=== PATIENT | male | born 1950 | race Caucasian/White ===

== ENCOUNTER → 2017-10-09 | Outpatient (REF) | payer MEDICARE, OTHER ==
[2017-10-09 12:32] LABS: RHEUMATOID FACTOR QUANT < 10.0 IU/ML (<15.0)
[2017-10-11 14:19] LABS: ANTINUCLEAR ANTIBODIES DIRECT Negative (Negative)
== END ==
LOC: M LAB REF 11:59
DX: M25.512 Pain in left shoulder (principal)
CPT/HCPCS: 86038

== ENCOUNTER → 2018-03-27 | Outpatient (CLI) | payer MEDICARE, OTHER | LOC: M ADAMS 09:16 | DX: J98.4 Other disorders of lung (principal); M51.34 Other intervertebral disc degeneration, thoracic region; J20.9 Acute bronchitis, unspecified | CPT/HCPCS: 85025 ==

== ENCOUNTER → 2018-03-27 | Outpatient (REF) | payer MEDICARE, OTHER ==
[2018-03-27 12:46] LABS: BASO % 0.2 % (0.0-1.0); EOS # 0.4 10^3/uL (0.0-0.50); EOS % 2.8 % (0.0-3.0); HEMATOCRIT 47.7 % (42.0-52.0); HEMOGLOBIN 15.9 g/dl (13.5-17.5); IMMATURE GRANULOCYTE % 0.2 % (0-3.0); LYMPH # 1.3 10^3/uL (1.5-4.5); MEAN CORPUSCULAR HEMOGLOBIN 31.4 pg (27.0-33.0); MEAN CORPUSCULAR HGB CONC 33.3 g/dl (32.0-36.5); MEAN CORPUSCULAR VOLUME 94.3 fl (80.0-96.0); MONO # 1.3 10^3/uL (0.0-0.8); MONO % 10.4 % (0.0-5.0); NEUTROPHILS # 9.5 10^3/uL (1.8-7.7); NEUTROPHILS % 76.4 % (36.0-66.0); PLATELET COUNT, AUTOMATED 206 10^3/uL (150-450); RED BLOOD COUNT 5.06 10^6/uL (4.30-6.10); RED CELL DISTRIBUTION WIDTH 13.3 % (11.5-14.5); WHITE BLOOD COUNT 12.5 10^3/uL (4.0-10.0)
== END ==
LOC: M LABDRWAD 12:23
DX: J20.9 Acute bronchitis, unspecified (principal)

== ENCOUNTER → 2018-05-13 | Outpatient (CLI) | payer MEDICARE, OTHER ==
--- NOTE | 2018-05-15 10:42 | SLEEPCENT ---
DATE OF STUDY: 05/13/2018 ORDERED BY: Vanita Baker Nocturnal polysomnography was performed for evaluation of sleep physiology in this patient with a history of excessive somnolence and nonrestorative sleep who has comorbidities of hypertension. 6 hours and 56 minutes of data were reviewed. There were 327 minutes of sleep identified. Sleep latency was mildly prolonged at 18 minutes. REM latency was prolonged at 126 minutes. Sleep architecture was fragmented with improvement after interventions were made. Overall sleep efficiency 79%. Electrocardiogram showed a sinus rhythm with an average heart rate of 57 beats per minute. EEG showed normal waveforms for awake and sleep stages. There were 161 respiratory events identified of 10 seconds in duration or greater for an apnea-hypopnea index of 29.5. The events were associated oxygen saturations into the 70s, and having clearly established the presence of obstructive sleep apnea syndrome, testing was stopped shortly after 1 a.m. for the application of pressure therapy. The patient was fit with a [employer]Med Quattro full face mask of medium size, 4 cm of water pressure were applied to the circuit and the lights were extinguished. Throughout the remaining course of testing, pressure therapy was progressively increasing to 13 cm. Best sleep during this study appears to have occurred at a pressure of +9, with which the patient was able to experience REM sleep though not in the supine posture with only mild respiratory variability. There was also some activity noted in the limb leads. Limb movement arousal index was 7.7. IMPRESSION: Obstructive sleep apnea syndrome (G47.33). Apnea-hypopnea index 29.5. RECOMMENDATION: Initiation of pressure therapy at 9 cm of water should be sufficient to address much of the patient's respiratory disruption. Given the severity of the patient's condition, however, close clinical followup is recommended and a full night retitration may be needed if clinical response is not forthcoming.
== END ==
LOC: M SLEEP 19:28
PROVIDERS: ATTEND Nurse Practitioner Family
DX: R40.0 Somnolence (principal)